=== PATIENT | female | born 1995 | race Caucasian/White ===

== ENCOUNTER 2017-09-16 08:54 | Emergency (ER) | payer BC ==
[2017-09-16] MEDS ORDERED: Ibuprofen 400 MG Tab PO ONE (09:16)
--- NOTE | 2017-09-16 09:42 | EDM.PDOC ---
ED HPI GENERAL MEDICAL PROBLEM - General Stated Complaint: SORE THROAT, FEVER Time Seen by Provider: 09/16/17 08:54 Source of Information: Reports: Patient, Family History Limitations: Reports: No Limitations - History of Present Illness INITIAL COMMENTS - FREE TEXT/NARRATIVE: 22 y.o.w.f came to the ed with her SO due pain in her throat and LK swelling of her ant neck for a few days. Pt has strep throat in the past, denied sick contact. temp 37.7 pulse 124 BP 143/93 Onset Date: 09/14/17 Onset Time: 07:00 Duration: Day(s):, Getting Worse Location: Reports: Face Quality: Reports: Ache, Burning Severity: Mild Improves with: Reports: Medication Worsens with: Reports: Eating Throat Pain Score (Numeric/FACES): 6 - Related Data Allergies Allergy/AdvReac Type Severity Reaction Status Date / Time No Known Allergies Allergy Verified 09/09/15 01:01 Home Meds: Home Meds Norgestimate-Ethinyl Estradiol [Sprintec 28 Day Tablet] 1 tab PO DAILY 09/09/15 [History] Amoxicillin [Amoxil 250 MG/5 ML Susp] 500 mg PO TID 10 Days bottle 09/16/17 [Rx ] Social & Family History - Tobacco Use Smoking Status *Q: Never Smoker Second Hand Smoke Exposure: No - Recreational Drug Use Recreational Drug Use: No ED ROS ENT - Review of Systems Review Of Systems: See Below Constitutional: Reports: No Symptoms HEENT: Reports: Throat Pain Respiratory: Reports: No Symptoms Cardiovascular: Reports: No Symptoms Endocrine: Reports: No Symptoms GI/Abdominal: Reports: No Symptoms : Reports: No Symptoms Musculoskeletal: Reports: No Symptoms Skin: Reports: No Symptoms Neurological: Reports: No Symptoms Psychiatric: Reports: No Symptoms Hematologic/Lymphatic: Reports: No Symptoms Immunologic: Reports: No Symptoms ED EXAM, ENT - Physical Exam Exam: See Below Exam Limited By: No Limitations General Appearance: Alert, WD/WN, Mild Distress Eye Exam: Bilateral Eye: Normal Inspection Ears: Normal External Exam Nose: Normal Inspection, Normal Mucousa Mouth/Throat: Normal Lips, Normal Teeth, Pharyngeal Erythema, Throat Pain, Tonsillar Erythema, Tonsillar Swelling Head: Atraumatic, Normocephalic Neck: Normal Inspection, Supple, Non-Tender, Full Range of Motion Respiratory/Chest: No Respiratory Distress, Lungs Clear, Normal Breath Sounds Cardiovascular: Normal Peripheral Pulses, Regular Rate, Rhythm, No Edema GI/Abdominal: Normal Bowel Sounds, Soft, Non-Tender (Female) Exam: Deferred Rectal (Female) Exam: Deferred Back: Normal Inspection Extremities: Normal Inspection, Normal Range of Motion Neurological: Alert, Oriented, CN II-XII Intact, Normal Cognition Psychiatric: Normal Affect, Normal Mood Skin: Warm, Dry, Intact, Normal Color Lymphatic: Adenopathy (bilater ant neck R>L) Course - Vital Signs Text/Narrative:: 22 y.o.w.f came to the ed with her SO due pain in her throat and LK swelling of her ant neck for a few days. Pt has strep throat in the past, denied sick contact. temp 37.7 pulse 124 BP 143/93 PE: Pharyngitis, airways are open, ant neck LK swelling. Labs: Rapid Strep Test was neg, Culture results are pending Impression: Pharyngitis, Strep presumed, Tachycardia Tx: Amoxicillin prescription, Motrin Reexam: Improved Plan: D/C with instruction Last Recorded V/S: Last Vital Signs Temp 37.2 C 09/16/17 10:31 Pulse 128 H 09/16/17 08:57 Resp 18 09/16/17 10:31 BP 130/86 09/16/17 10:31 Pulse Ox 100 09/16/17 10:31 - Orders/Labs/Meds Orders: Active Orders 24 hr Category Date Time Status CULTURE STREP A CONFIRMATION [RM] Stat Lab 09/16/17 09:01 Results STREP SCRN A RAPID W CULT CONF [] Stat Lab 09/16/17 09:01 Results Meds: Medications Discontinued Medications Generic Name Dose Route Start Last Admin Trade Name Jerzy PRN Reason Stop Dose Admin Ibuprofen 400 mg 09/16/17 09:16 09/16/17 09:47 Motrin PO 09/16/17 09:17 400 mg ONETIME ONE Administration Departure - Departure Time of Disposition: 10:17 Disposition: Home, Self-Care 01 Condition: Good Clinical Impression: Pharyngitis Qualifiers: Pharyngitis/tonsillitis etiology: other specified organisms Qualified Code(s): J02.8 - Acute pharyngitis due to other specified organisms - Discharge Information Prescriptions: Amoxicillin [Amoxil 250 MG/5 ML Susp] 500 mg PO TID 10 Days bottle Instructions: Pharyngitis, [id number] Referrals: Jenn Bello, TE[employer]S [employer]CHITECT [Primary Care Provider] - Forms: ED Department Discharge, ED Return to Work/School Form Additional Instructions: Motrin for pain, amoxicillin as recommended, saltwater gurgling, please follow up in next 5 days at [facility] for appt, come back if the symptoms get worse acutely. - My Orders Last 24 Hours: My Active Orders 09/16/17 09:01 CULTURE STREP A CONFIRMATION [RM] Stat STREP SCRN A RAPID W CULT CONF [RM] Stat - Assessment/Plan Last 24 Hours: My Active Orders 09/16/17 09:01 CULTURE STREP A CONFIRMATION [RM] Stat STREP SCRN A RAPID W CULT CONF [RM] Stat
[2017-09-16 10:39] VITALS: BP 130/86
== END 2017-09-16 10:32 | disposition home or self-care (01) ==
LOC: FB.ED 08:54
DX: J02.8 Acute pharyngitis due to other specified organisms (principal); Z79.899 Other long term (current) drug therapy
CPT/HCPCS: 87081; 87430; 99283; A9270